=== PATIENT | male | born 1970 | race Caucasian/White ===

== ENCOUNTER 2022-07-09 14:39 | Outpatient (CLI) | payer OTHER, SELFPAY | END 2022-07-09 14:40 | disposition home or self-care (01) | PROVIDERS: PCP Family Medicine; Visit Provider Family Medicine | DX: Z00.00 Encounter for general adult medical examination without abnormal findings (principal); Z12.5 Encounter for screening for malignant neoplasm of prostate; Z13.6 Encounter for screening for cardiovascular disorders | CPT/HCPCS: 80053; 80061; 84153 ==

== ENCOUNTER 2022-10-16 09:13 | Outpatient (CLI) | payer OTHER, SELFPAY | END 2022-10-16 09:14 | disposition home or self-care (01) | LOC: NFLDREF 10-17 15:07 | PROVIDERS: PCP Family Medicine; Referring Provider Family Medicine; Visit Provider Family Medicine | DX: E78.00 Pure hypercholesterolemia, unspecified (principal) | CPT/HCPCS: 80061; 80076 ==

== ENCOUNTER 2024-02-13 08:47 | Outpatient (CLI) | payer OTHER, SELFPAY | END 2024-02-13 08:48 | disposition home or self-care (01) | PROVIDERS: PCP Family Medicine; Visit Provider Family Medicine | DX: I10 Essential (primary) hypertension (principal); E78.00 Pure hypercholesterolemia, unspecified; E11.9 Type 2 diabetes mellitus without complications; Z12.5 Encounter for screening for malignant neoplasm of prostate | CPT/HCPCS: 80053; 82043; 82570; G0103 ==

== ENCOUNTER 2024-03-19 08:23 | Outpatient (CLI) | payer OTHER, SELFPAY | END 2024-03-19 08:24 | disposition home or self-care (01) | PROVIDERS: PCP Family Medicine; Referring Provider Family Medicine; Visit Provider Family Medicine | DX: I10 Essential (primary) hypertension (principal); E78.00 Pure hypercholesterolemia, unspecified | CPT/HCPCS: 80048 ==

== ENCOUNTER 2024-03-25 06:12 | Day surgery (SDC) | payer OTHER, SELFPAY ==
[2024-03-25] VITALS (15 sets, daily range): BP systolic 115–153; BP diastolic 62–99; PULSE 66–80; RESP 14–18; TEMP 36.4–36.8; O2SAT 92–96; BMI 31.9
--- OUTSIDE RECORDS SUMMARY | 2024-03-25 06:14 | XMS_ITS | Referral Summary ---
Author Organization [place] Address [address] [place] [id number] Care Team Providers Care Manager Mechanical Name Role Phone [facility] Primary Care Provider + Allergies No known active allergies Medications polyvinyl alcohol (LIQUIFILM TEARS) 1.4 % ophthalmic solution Place 1 drop Into the left eye as needed for dry eyes 15 mL 06/08/2018 Active buPROPion (ZYBAN) 150 MG 12 hr tablet Take 150 mg by mouth 2 times daily Active Resolved Problems Problem Noted Date Diagnosed Date Resolved Date Other postprocedural status(V45.89) 03/20/2007 04/03/2007 Disorder of bursae and tendo ns in shoulder region 03/20/2007 04/03/2007 Overview (12/10/2014): Problem list name updated by automated process. Provider to review Social History Tobacco Use Types Packs/Day Years Used Date Smoking Tobacco: Every Day Smokeless Tobacco: Never Adolescent Education Answer Date Record ed Getting School Help Needed Not on file 12/16 Sex and Gender Information Value Date Recorded Sex Assigned at Not on file Legal Sex Male 3:09 AM CENTRAL PROCESSING TECHNICIAN Gender Identity Not on file Sexual Orientation Not on file Last Filed Vital Signs Vital Sign Reading Time Taken Comments Blood Pressure 150/97 03/11/2021 6:23 PM CENTRAL PROCESSING TECHNICIAN Pulse 88 03/11/2021 6:23 PM CENTRAL PROCESSING TECHNICIAN Temperature 36.5 C (97.7 F) 03/11/2021 6:23 PM CENTRAL PROCESSING TECHNICIAN Respiratory Rate 18 03/11/2021 6:23 PM CENTRAL PROCESSING TECHNICIAN Oxygen Saturation 99% 03/11/2021 6:23 PM CENTRAL PROCESSING TECHNICIAN Inhaled Oxygen Concentration - - Weight - - Height - - Body Mass Index - - Plan of Treatment Not on file Procedures Procedure Name Priority Date/Time Associated Diagnosis Comments GLUCOSE BY METER Routine 06/08/2018 2:29 PM CDT Blurred vision, left eye from Last 3 Months or Most Recently Relevant to Health Maintenance Results * (ABNORMAL) Glucose by meter (06/08/2018 2:29 PM CDT) Glucose 108(H) 70 - 99 mg/dL 06/08/2018 7:29 PM CDT POINT OF CARE TEST, GLUCOSE 06/08/2018 2:29 PM CDT 06/08/2018 7:29 PM CDT Hilaria Baugh PA-C LAB [facility] POCT Fin al Result POINT OF CARE TEST, GLUCOSE from Last 3 Months or Most Recently Relevant to Health Maintenance [facility] [place] [id number] Care Teams Manager Mechanical Relationship Specialty Start Date End Date [facility], [address] [address] PCP - General 03/11/21
--- OUTSIDE RECORDS SUMMARY | 2024-03-25 06:14 | XMS_ITS | Clinical Summary ---
Author Organization [place] Address [address] [place] [address] Care Team Providers Care Hammerer Tab Name Role Phone [facility] Primary Care Provider + Allergies [...] updated by automated process. Provider to review Family History Medical History Relation Comments Macular Degeneration Brother Retinal detachment Father Glaucoma No family hx of Relation Status Comments Brother Father Social History Tobacco Use Types Packs/Day Years Used Date Smoking Tobacco: Every Day Smokeless Tobacco: Never Adolescent Education Answer Date Record ed Getting School Help Needed Not on file 12/16 Sex and Gender Information Value Date Recorded Sex Assigned at Not on file Legal Sex Male 3:09 AM VOCATIONAL TRAINER Gender Identity Not on file Sexual Orientation Not on file Last Filed Vital Signs Vital Sign Reading Time Taken Comments Blood Pressure 150/97 03/11/2021 6:23 PM VOCATIONAL TRAINER Pulse 88 03/11/2021 6:23 PM VOCATIONAL TRAINER Temperature 36.5 C (97.7 F) 03/11/2021 6:23 PM VOCATIONAL TRAINER Respiratory Rate 18 03/11/2021 6:23 PM VOCATIONAL TRAINER Oxygen Saturation 99% 03/11/2021 6:23 PM VOCATIONAL TRAINER Inhaled Oxygen Concentration - - Weight - [...] 06/08/2018 7:29 PM CDT Hilaria Baugh PA-C [facility] POCT Fin al Result POINT OF CARE TEST, GLUCOSE from Last 3 Months or Most Recently Relevant to Health Maintenance [facility] Care Teams Hammerer Tab Relationship Specialty Start Date End Date Clinic, [address] [id number] PCP - General 03/11/21
--- OUTSIDE RECORDS SUMMARY | 2024-03-25 06:14 | XMS_ITS | Encounter Summary ---
Author Organization [place] Address [address] [place] [address] Care Team Providers Care Food Service Supervisor Name Role Phone [facility] Primary Care Provider + Encounter Details Date Type Department Care Team (Late st Contact Info) Description 03/11/2021 Documentation Only INTERFACED REPORT Unknown, Provider Social History Tobacco Use Types Packs/Day Years Used Date Smoking Tobacco: Every Day Smokeless Tobacco: Never Sex and Gender Information Value Date Recorded Sex Assigned at Not on file Legal Sex Male 3:09 AM CANE FLUME WATCHER Gender Identity Not on file Sexual Orientation Not on file COVID-19 Exposure Response Date Recorded In the last month, have you been in contact with someone who was confirmed or suspected to have Coronavirus / COVID-19? No / Unsure 03/11/2021 6:06 PM CANE FLUME WATCHER documented as of this encounter Plan of Treatment Not on file documented as of this encounter Visit Diagnoses Not on filedocumented in this encounter Care Teams Food Service Supervisor Relationship Specialty Start Date End Date [address] [address] PCP - General 03/11/21 documented as of this encounter
--- OUTSIDE RECORDS SUMMARY | 2024-03-25 06:14 | XMS_ITS | Clinical Summary ---
Author Organization [facility] Address [place], [place] [address] Care Team Providers Care Conveyor Line Battery Charger Name Role Phone Julián Anderson Primary Care Provider [phone] Allergies No known active allergies Medications meloxicam (MOBIC) 7.5 mg tabletIndication s:Pain, dental Take 1 Tablet (7.5 mg) by mouth once daily. 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 Office Visit [facility] - [address] [id number] Arpit Thao MBBS Dental Problem 02/02/2024 Travel from Last 3 Months Social History Tobacco Use Types Packs/Day Years Used Date Smoking Tobacco: Every Day Cigarettes 0.5 5 Smokeless Tobacco: Never Alcohol Use Standard Drinks/Week Comments Not Asked 0 (1 standard drink = 0.6 oz pur e alcohol) Sex and Gender Information Value Date Recorded Sex Assigned at Not on file Legal Sex Male 5:52 AM SUPERVISOR [employer]URKEY [employer]ARM Gender Identity Not on file Sexual Orientation Not on file Obstetrics History Last Filed Vital Signs Vital Sign Reading Time Taken Comments Blood Pressure 157/93 02/02/2024 8:09 AM SUPERVISOR 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 Pulse 88 02/02/2024 8:09 AM SUPERVISOR [employer]URKEY [employer]ARM Temperature 36.6 C (97.9 F) 02/02/2024 8:09 AM SUPERVISOR TURKEY FARM Respiratory Rate 12 12/01/2009 2:50 PM CDT Oxygen Saturation 95% 02/02/2024 8:0 9 AM SUPERVISOR [employer]UR[employer]ARM Inhaled Oxygen Concentration - - Weight 95.3 kg (210 lb) 02/02/2024 8:09 AM SUPERVISOR [employer] patient reported Height 176 cm (5' 9.29) 09/14/2010 12: 28 PM CDT Body Mass Index - - Plan of Treatment Upcoming Encounters Date Type Department Care Team (Late st Contact Info) Description 04/20/2024 7:40 AM SUPERVISOR [employer]UR[employer] Office Visit [facility] [address] [place] [address] Florencio Montemayor MD [address] [place] [address] Health Maintenance Due Date Last Done Comments Tdap 07/30/1982 Depression screening for age 12+ 1983 HIV for age 15-65 07/30/1986 BMI (ht and wt on same day) for age 18+ 07/30/1989 Hepatitis C screening for age 18-79 07/30/1989 Tetanus booster 1991 Colonoscopy through age 75 07/30/2016 Lipids for age 45-75 07/30/2016 Pneumococcal series for age 50+ (1 of 1 - PCV) 022 Zoster (shingles) series for age 50+ (1 of 2) 07/31/19 22 COVID-19 vaccine series ( season) 4 Influenza for age 50-64 11/10/2023 Insurance [place] [id number] Care Teams Conveyor Line Battery Charger Relationship Specialty Start Date End Date Julián Anderson PCP - General 04/05/09
[2024-03-25] MEDS: OXYCODONE (CR) 10 MG TAB.ER.12H PO (06:25)
[2024-03-25] MEDS: CELECOXIB 200 MG CAPSULE PO (06:25)
[2024-03-25] MEDS: ACETAMINOPHEN 500 MG TABLET 1000 MG PO (06:25)
[2024-03-25] MEDS: LACTATED RINGERS 1000 ML 1,000 ML 100 ML IV (06:55)
[2024-03-25] MEDS: SODIUM CHLORIDE 0.9 % (FLUSH) 10 ML SYRINGE IVF (06:55)
--- NOTE | 2024-03-25 07:17 | SUR.PREOP ---
TIME?OUT:?0719 PT/RN/MDA?VERIFICATION?OF?SURGICAL?SITE,?PROCEDURE,?AND?CONSENT OBTAINED?PRIOR?TO?INVASIVE?PROCEDURE.
--- NOTE | 2024-03-25 07:17 | W.PM.H&PU ---
History & Physical Update History & Physical Update H&P Reviewed and patient assessed: No changes noted H&P Updates: Right knee pain secondary to osteoarthritis not improving with non operative management. Patient has subsequently elected to proceed with surgery consisting of right total knee arthroplasty. The risks and benefits of total knee arthroplasty surgery were discussed. Complications including, but not limited to, infection, blood clots, neurovascular injury, stiffness, failure of the procedure, heart attack, stroke were discussed. Details of the procedure and rehabilitation expectations were also outlined.
--- NOTE | 2024-03-25 07:19 | P.ORPRC_ITS ---
Procedure Note Date of procedure: 03/25/24 Procedure: PREOPERATIVE DIAGNOSIS: 1. Right knee osteoarthritis POSTOPERATIVE DIAGNOSES: 1. Right knee osteoarthritis PROCEDURE: 1. Right total knee arthroplasty SURGEON: Arvind Lee MD MATERIALS PLANNER/PRODUCTION PLANNER: Katty Quinn P.A.-C.. An temporary administrative assistant was critical for this case to aide in patient positioning, suture manipulation, arm positioning, instrument positioning, and closure. ANESTHESIA: Spinal with regional nerve blocks IMPLANTS: DePuy Attune femoral posterior stabilized component size 7; DePuy Attune tibial base rotating platform size 8; DePuy Attune tibial insert rotating platform posterior stabilized polyethylene size 7, 5 mm; and an Attune patella medialized dome size 38 mm. EBL: 50 ml TOURNIQUET TIME: 97 minutes at 250 mmHg COMPLICATIONS: None evident INDICATIONS: Florencio is a 53-year-old male who has chronic right knee pain secondary to osteoarthritis. Symptoms have worsened despite non operative treatment. Patient is now interested in proceeding with total knee arthroplasty for improved function, decreased pain and better quality of life. Prior to the procedure, risks and benefits of the operative and non operative treatment were discussed with the patient. After discussion of risks, benefits, and alternatives of surgery, informed consent was obtained and the operative site was marked. FINDINGS: Grade 4 chondromalacia of the medial femoral condyle, medial tibial plateau, patella and trochlea. Grade 2 chondromalacia lateral tibial plateau and lateral femoral condyle. PROCEDURE: Patient was seen preoperatively and operative site was marked. Abductor canal in genicular nerve blocks were performed by anesthesia staff. Patient was then brought to the operating room, where spinal anesthesia was administered by the anesthesia staff. Patient was then placed into the supine position on the OR table and all bony prominences were well padded. Preoperative prophylactic antibiotics were administered intravenously. A tourniquet was placed on the thigh of the operative leg. The right lower extremity was prepped and draped in usual sterile fashion. A surgical time-out was performed confirming patient identity, surgical procedure, and surgical site. Operative extremity was elevated and exsanguinated with an Esmarch and tourniquet was inflated to 250 mmHg. The tourniquet remained inflated for 97 minutes before it was deflated. An anterior longitudinal incision was made and carried down through the subcutaneous tissues. The quadriceps tendon, medial patellar retinaculum, and patellar tendon were visualized. A medial quadriceps splitting parapatellar arthrotomy was performed. The proximal medial tibia was subperiosteal exposed distal to the joint line. The retropatellar fat pad was excised. The knee was flexed and patella everted. A curved osteotome was used to enter the semimembranous bursa medially at the level of the joint line. Medial and lateral tibial plateau osteophytes were removed with a rongeur. The medial meniscus was excised at the meniscal synovial junction. The anterior cruciate ligament was excised. A Z-retractor was placed medially and a right angle Hohmann retractor was placed anterior lateral to the lateral meniscus. A partial lateral meniscectomy was performed. The intramedullary drill was utilized to open the intramedullary canal. ?Intramedullary alignment guide was inserted. The distal femoral cutting block, set at 5 degrees of valgus with a distal femoral resection of 9 mm, was secured with pins, and the distal femoral osteotomy was performed. ?Using the posterior condylar referencing guide, femur was sized to a size 7, and pins were drilled for 3 degrees of external rotation, which corresponded with Whitesides line and the epicondylar axis. ?A 4-in-1 cutting jig was inserted at 3 degrees of external rotation. ?The anterior and posterior condylar cuts were performed followed by anterior and posterior chamfer cuts. The box cutting guide was then secured to the distal femur with pins and the box osteotomy was performed. ? ? We then turned our attention back to the tibia. ?Ranasall maneuver was performed and remainder of the lateral meniscus, medial meniscus, and PCL were excised. ?A retractor was placed along the posterior tibia. ?Extramedullary guide was secured around the ankle in line with the subcutaneous tibial crest. ?The tibial cutting block, set to remove 2 mm of bone from medial tibial plateau and 9 mm of bone from lateral tibial plateau, was secured proximally with pins. ?Tibial osteotomy was performed with care taken to protect the collateral ligaments. ?Spacer blocks were inserted, and knee was noted to be tight in flexion and extension. Therefore tibial osteotomy was recovery moving additional 2 mm of bone. Spacer blocks were reinserted, which confirmed symmetric flexion and extension gaps.?The tibia was then sized to a size 8, and tibial base plate was secured. Tibia was then prepped with the appropriate drill and punch. Trial femur and tibial components with a 5 mm tibial polyethylene component were inserted. The knee was then brought out to full extension. ?The patella was everted and osteochondral junction was exposed. ?The patella measured 22 mm in thickness. ?The patellar osteotomy was performed, leaving 14 mm of remnant patella. ?Three lug holes were drilled for the 38 mm patella button and the patella button was inserted. The knee was brought through a full range of rossy on. ?Soft tissue tension, collateral ligament stability, and patella tracking were confirmed to be satisfactory. ?Trial components were then removed. ??After removing the trial components, a bone plug was placed in the distal femur. ?The exposed bony surfaces of the tibia, femur, and patella were then thoroughly irrigated with pulse lavage and dried. ? Cement was mixed on the back table and was subsequently introduced onto the tibia and tibial base plate. ?Tibial base plate was then impacted into position, and extruded cement was removed. ?Cement was then applied to the distal femur and posterior condyles of the femoral prosthesis. ?The femoral prosthesis was impacted into position, extruded cement was removed, and a trial polyethylene was inserted. ?Knee was then brought out to full extension for remainder of drying. ?Cement was then applied to the patella and patellar button. The patella button was clamped into position, and extruded cement was removed. ?While the cement was drying, knee was soaked in a sterile iodine solution. ? After the cement had dried, the knee was flexed and the trial tibial component was removed. The tourniquet was released . The soft tissues were then irrigated with pulse lavage, and hemostasis was achieved with electrocautery. A formal size 7, 5 mm rotating platform posterior stabilized polyethylene was then secured into position. ? The parapatellar arthrotomy was closed with #1 Vicryl [id number] interrupted sutures followed by a running #1 Stratafix suture. ?Subcutaneous soft tissues were again irrigated normal saline. Skin was closed with 2-0 Vicryl inverted, interrupted, subcutaneous stitches followed by running 2-0 Stratafix and 3-0 Monocryl subcuticular stitches. ?The incision was then sealed with Dermabond and sterile dressing was applied. ?The patient was then transferred to the recovery room in stable condition. POSTOPERATIVE PLAN: 1. Patient will be discharged to home on day of surgery. 2. Outpatient physical therapy per total knee arthroplasty protocol. -Weight bear as tolerated right lower extremity. 3. Pain control: -Acetaminophen and Oxycodone for pain as needed. -Ice for pain and swelling. 4. DVT prophylaxis: -aspirin 81 mg b.i.d. for 35 days. 5. Follow-up in Orthopedic Clinic in 1-2 weeks.
[2024-03-25] MEDS: MIDAZOLAM HCL 1 MG/ML inj IVP (07:21)
[2024-03-25] MEDS: fentaNYL 100 MCG/2 ML inj IVP (07:21)
[2024-03-25] MEDS: TRANEXAMIC ACID 100 MG/ML INJ 1000 MG IV (08:00)
[2024-03-25] MEDS: CEFAZOLIN 2 GM INJ IVP (08:04)
--- NOTE | 2024-03-25 10:20 | CRLHL7_ITS ---
For Patients: As a result of the Cures Act, medical imaging exams and procedure reports are released immediately into your electronic medical record. You may view this report before your referring provider. If you have questions, please contact your health care provider. Indication: Postop Technique: Two views right knee Findings/Impression: Hardware from a right total knee arthroplasty is in satisfactory position. Bone alignment is normal. No sign of acute fracture. Postop changes are within normal limits. Dictated by Efrain Velásquez MD @ 03/25/2024 12:26:31 PM (Electronically Signed)
--- NOTE | 2024-03-25 11:10 | P.ANES_ITS ---
Anesthesia Charges Start Date/Time Anesthesia Start Date: 03/25/24 Anesthesia Start Time: 07:38 Stop Date/Time Anesthesia Stop Date: 03/25/24 Anesthesia Stop Time: 11:08 Coding CPT Codes CPT Codes: ANESTH KNEE ARTHROPLASTY - 06339 ([id number]) P2 - PATIENT W/MILD SYST DISEASE, QK - CORE CLEANER 2-4 CNCRNT ANES PROC, QX - DIGITAL FIELD SERVICE TECHNICIAN SVC W/ MD MED DIRECTION
--- NOTE | 2024-03-25 11:10 | W.ANESCHARGE ---
Anesthesia Charges Start Date/Time Anesthesia Start Date: 03/25/24 Anesthesia Start Time: 07:38 Stop Date/Time Anesthesia Stop Date: 03/25/24 Anesthesia Stop Time: 11:08 Coding CPT Codes CPT Codes: ANESTH KNEE ARTHROPLASTY - 74493 ([id number]) P2 - PATIENT W/MILD SYST DISEASE, QK - DIVERSIFIED CROPS FARMER 2-4 CNCRNT ANES PROC, QX - STAFF PHYSICAL THERAPIST SVC W/ MD MED DIRECTION
--- NOTE | 2024-03-25 11:15 | W.PM.NB ---
Nerve Block Nerve Block Time Seen by Provider: 07:20 Date Seen: 03/25/24 Type of block requested by surgeon for post-operative analgesia: adductor canal Side: right Time out performed: Yes Verification of patient name: Yes Verification of date of : Yes Site marking: site marked Name of person performing procedure: Sherwin Continuous monitoring Was continuous monitoring of O2 sat, B/P, animal pathologist, recorded every 15 minutes?: Yes Procedure Checklist: sterile prep, needles and gloves Ultrasound guided. Images saved: Yes Medications given in 5ml increments after negative aspiration: Marcaine %: 0.25 mL: 15 Needle gauge: 20 Precedex (mcg): 25 Patient tolerated procedure well: Yes Block Charges Block Charge (with Pro Fee): Femoral Nerve Use of Ultrasound Machine for Block: Yes- US Guidance/pain block
--- NOTE | 2024-03-25 11:15 | W.PM.NB ---
Nerve Block Nerve Block Time Seen by Provider: 07:20 Date Seen: 03/25/24 Type of block requested by surgeon for post-operative analgesia: geniculars Side: right Time out performed: Yes Verification of patient name: Yes Verification of date of : Yes Site marking: site marked Name of person performing procedure: Sherwin Continuous monitoring Was continuous monitoring of O2 sat, B/P, cardiac/vascular sonographer, recorded every 15 minutes?: Yes Procedure Checklist: sterile prep, needles and gloves Ultrasound guided. Images saved: Yes Medications given in 5ml increments after negative aspiration: Marcaine %: 0.25 mL: 9 Needle gauge: 25 Patient tolerated procedure well: Yes Block Charges Block Charge (with Pro Fee): Genicular Nerve Block
--- NOTE | 2024-03-25 11:16 | P.ANES_ITS ---
Anesthesia Charges Start Date/Time Anesthesia Start Date: 03/25/24 Anesthesia Start Time: 07:38 Stop Date/Time Anesthesia Stop Date: 03/25/24 Anesthesia Stop Time: 11:08 Coding CPT Codes CPT Codes: ANESTH KNEE ARTHROPLASTY - 85895 ([id number]) QK - DIRECTOR OF VALUATION 2-4 CNCRNT ANES PROC, QX - INDUSTRIAL MAINTENANCE MECHANIC SVC W/ MD MED DIRECTION, P2 - PATIENT W/MILD SYST DISEASE
--- NOTE | 2024-03-25 11:16 | W.ANESCHARGE ---
Anesthesia Charges Start Date/Time Anesthesia Start Date: 03/25/24 Anesthesia Start Time: 07:38 Stop Date/Time Anesthesia Stop Date: 03/25/24 Anesthesia Stop Time: 11:08 Coding CPT Codes CPT Codes: ANESTH KNEE ARTHROPLASTY - 94102 ([id number]) QK - APPLICATIONS DEVELOPER 2-4 CNCRNT ANES PROC, QX - FINISHED CLOTH CHECKER SVC W/ MD MED DIRECTION, P2 - PATIENT W/MILD SYST DISEASE
--- NOTE | 2024-03-25 11:38 | SUR.PHASEI ---
patient met pacu d/c criteria
[2024-03-25] MEDS: OxyCODONE/APAP 5-325 TABLET PO ×2 (12:22→12:55)
== END 2024-03-25 14:04 | disposition home or self-care (01) ==
LOC: OR 06:13
PROVIDERS: PCP Family Medicine; Visit Provider Orthopaedic Surgery
PROC: (CPT 27447; principal; 2024-03-25 07:30)
DX: M17.11 Unilateral primary osteoarthritis, right knee (principal); G89.18 Other acute postprocedural pain; M94.261 Chondromalacia, right knee; I10 Essential (primary) hypertension
CPT/HCPCS: 27447; 01402; 64447; 64454; 73560; 76942; 97161; 97530; A4314; A9270; C1776; J0665; J0690; J2250; J2704; J3010; J7120

== ENCOUNTER 2024-06-04 11:00 | Outpatient (RCR) | payer OTHER, SELFPAY | END 2024-10-02 23:59 | disposition home or self-care (01) | PROVIDERS: PCP Family Medicine; Visit Provider Orthopaedic Surgery | DX: M17.11 Unilateral primary osteoarthritis, right knee (principal); Z96.651 Presence of right artificial knee joint; Z01.818 Encounter for other preprocedural examination; Z51.89 Encounter for other specified aftercare | CPT/HCPCS: 97110; 97140; 97162; 97164; J0690; J1100; J2405; J2704 ==